=== PATIENT | male | born 1990 | race Caucasian/White ===

== ENCOUNTER 2018-04-08 10:57 | Emergency (ER) | payer OTHER ==
[2018-04-08] MEDS ORDERED: oxyCODONE 5 MG TABLET PO STA (12:00)
--- NOTE | 2018-04-08 12:06 | XRAY Report ---
Reason: wrist foriegn object Procedure Date: 04/08/2018 Accession Number: [id number] / [id number] Procedure: XR - Wrist 3 View LT CPT Code: FULL RESULT: EXAM: LEFT WRIST RADIOGRAPHY EXAM DATE: 04/08/2018 11:36 AM. CLINICAL HISTORY: Wrist foreign object, pain. COMPARISON: None. TECHNIQUE: 3 views. FINDINGS: Bones: Bony mineralization appears appropriate. No acute fracture or focal osseous destruction. Joints: Alignment and joint spaces appear maintained. Soft Tissues: Small radiopaque foreign body projecting within the soft tissues along the palmar side of the wrist at the level of the radiocarpal joint. This measures located approximately 1 mm and approximately 7 mm deep to the skin surface. IMPRESSION: No acute fracture or dislocation. Small radiopaque foreign body projecting within the soft tissues along the palmar side of the wrist at the level of the radiocarpal joint. This measures approximately 1 mm and located approximately 7 mm deep to the skin surface. RADIA
--- NOTE | 2018-04-08 12:47 | ED Physician Documentation ---
History of Present Illness - Stated complaint Stated Complaint: LEFT HAND LAC - Chief complaint Chief Complaint: Ext Problem - Additonal information Additional information: hx from pt [place] male immuniz UTD mettalic FB into ant l wrist at work seen by [facility] chaney and advised likely did not need removal, splinted and has fup Monday inc discomfort with ROM and numbness to palm proximal to thumb/index web space to ER to have it removed Review of Systems Skin: reports: Other (puncture) Musculoskeletal: reports: Other (wrist pain) Neurologic: reports: Numbness (L hand) PD PAST MEDICAL HISTORY - Past Medical History Past Medical History: No - Past Surgical History Past Surgical History: Yes - Present Medications Home Medications: Ambulatory Orders Medication Instructions Recorded Confirmed HYDROcod/ACETAM 5/325 [[place] 5/325] 1 ea PO Q6H PRN #4 tablet 04/08/18 Ibuprofen [Motrin] 400 mg PO Q6H PRN #20 tablet 04/08/18 - Allergies Allergies/Adverse Reactions: Allergies Allergy/AdvReac Type Severity Reaction Status Date / Time No Known Drug Allergies Allergy Verified 04/08/18 11:07 - Social History Does the pt smoke?: No Smoking Status: Never smoker Does the pt drink ETOH?: Yes Does the pt have substance abuse?: No - Immunizations Immunizations are current?: Yes PD ED PE NORMAL - Vitals Vital signs reviewed: Yes - Extremities Extremities: Other (L volar wrist small puncture s erythema swelling redness discharge, limited ROM 2/2 pain, motor intact except as limited by pain, dec sensation to palm just proximal to thumb index web space, + cap refill) Results - Vitals Vitals: Vital Signs - 24 hr 04/08/18 11:07 Temperature 36.4 C L Heart Rate 98 Respiratory 16 Rate Blood Pressure 132/82 H O2 Saturation 100 Oxygen O2 Source Room air - Rads (name of study) wrist Radiology: See rad report (small metallic FB volar wrist, < 1 cm) PD MEDICAL DECISION MAKING - ED course ED course: does not appear infected spoke to Chevy Islas who does not feel it needs emergent removal and defers to [facility] ch[facility] for further care spoke to [employer] chaney who states the exam as i describe is same as when he saw pt Monday and that he also does not think it needs emergent removal and that he will see pt in clinic tomorrow have oxy for pain and a dose of decadron for nerve inflammation - Sepsis Event Vital Signs: Vital Signs - 24 hr 04/08/18 11:07 Temperature 36.4 C L Heart Rate 98 Respiratory 16 Rate Blood Pressure 132/82 H O2 Saturation 100 Oxygen O2 Source Room air Departure - Departure Disposition: 01 Home, Self Care Clinical Impression: Paresthesia Metal foreign body in upper extremity Qualifiers: Encounter type: initial encounter Laterality: left Qualified Code(s): S40.852A - Superficial foreign body of left upper arm, initial encounter Condition: Good Follow-Up: [facility] [Provider Group] Prescriptions: HYDROcod/ACETAM 5/325 [[place] 5/325] 1 ea PO Q6H PRN #4 tablet PRN Reason: Severe Pain Ibuprofen [Motrin] 400 mg PO Q6H PRN #20 tablet PRN Reason: Pain Comments: I spoke to orthopedics at [facility] and at [place] - the surgeons do not feel this needs to be removed emergently The [place] orthopedic surgeon would like to see you in clinic tomorrow We gave you a dose of steroids to decrease the nerve inflammation and hopefully ease the numbness and pain And I have prescribed enough pain medication to last you until you are seen in clinic tomorrow Wear your splint Ice and elevation will help to Forms: Activity restrictions
[2018-04-08 13:10] VITALS: BP 135/90
== END 2018-04-08 13:09 | disposition home or self-care (01) ==
LOC: ED 10:57
DX: S61.542A Puncture wound with foreign body of left wrist, initial encounter (principal); R20.2 Paresthesia of skin; X58.XXXA Exposure to other specified factors, initial encounter; Y93.89 Activity, other specified; Y92.89 Other specified places as the place of occurrence of the external cause; Y99.1 Military activity
CPT/HCPCS: 73110; 99283; A9270

== ENCOUNTER 2018-10-09 12:57 | Emergency (ER) | payer OTHER ==
--- NOTE | 2018-10-09 14:31 | ED Physician Documentation ---
PD HPI HEENT - Stated complaint Stated Complaint: EYE INJURY - Chief complaint Chief Complaint: Trauma Hd/Nk - History obtained from History obtained from: Patient - History of Present Illness Timing - onset: Today Timing - details: Abrupt onset (He was working with a tool that came loose from what he was working on and it came back and struck him in the right lower eyelid. He denies any injury or feeling of injury to the eyeball itself. He has a laceration on the lower eyelid just at the margin of the lid. He is having some bruising of the lower eyelid as well. He came here from work for evaluation. 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 No: Congestion, Headache Recently seen: Not recently seen Review of Systems Eyes: denies: Loss of vision, Decreased vision, Photophobia, Irritation Neurologic: denies: Altered mental status, Headache PD PAST MEDICAL HISTORY - Past Medical History Past Medical History: No Cardiovascular: None Respiratory: None Neuro: None Endocrine/Autoimmune: None GI: None : None HEENT: None Psych: None Musculoskeletal: None Derm: None - Past Surgical History Past Surgical History: Yes - Present Medications Home Medications: Ambulatory Orders Medication Instructions Recorded Confirmed Naproxen 500 mg PO BID #20 tablet 10/09/18 Tramadol HCl 50 mg PO Q6H PRN #12 tablet 10/09/18 - Allergies Allergies/Adverse Reactions: Allergies Allergy/AdvReac Type Severity Reaction Status Date / Time No Known Drug Allergies Allergy Verified 10/09/18 13:07 - Social History Does the pt smoke?: No Smoking Status: Never smoker Does the pt drink ETOH?: Yes ETOH Use: Beer Does the pt have substance abuse?: No - Immunizations Immunizations are current?: Yes - POLST Patient has POLST: No PD ED PE NORMAL - Vitals Vital signs reviewed: Yes - General General: Alert and oriented X 3, No acute distress, Well developed/nourished - HEENT HEENT: PERRL, EOMI, Other (There is some bruising and early ecchymosis of the lower eyelid. There is some mild subconjunctival hemorrhage just on the 4 o'clock position on the right eye. There is a laceration in the lower lid towards the medial aspect but not at the medial canthus. He goes just to the edge of the lid margin and there is some gapping of the wound. There is slight oozing bleeding at this time. Is no foreign body seen. The rest of the face is nontender. He has good extraocular motions without any posterior eye pain.) - Neck Neck: Supple, no meningeal sign, No adenopathy - Derm Derm: Normal color, Warm and dry - Neuro Neuro: Alert and oriented X 3, No motor deficit, Normal speech Results - Vitals Vitals: Vital Signs - 24 hr 10/09/18 10/09/18 13:02 15:11 Temperature 36.7 C 36.4 C L Heart Rate 72 74 Respiratory 16 16 Rate Blood Pressure 138/79 H 139/84 H O2 Saturation 100 100 Oxygen O2 Source Room air PD MEDICAL DECISION MAKING - ED course Complexity details: considered differential (The laceration is at the medial corner of the right lower lid. It does not appear to involve the medial canthus. However it does disrupt the lid margin just slightly. There is gapping of the wound and edge. I told the patient a feel he really needs sutures to have this better approximated. He is uncomfortable at the thought of a needle close to his eye. I discussed with him that the approach with the topical anesthetic and any potential numbing local injection would have the needle directed along the line of the lid and not pointed at all towards his eyeball directly. He was still too uncomfortable with the thought of suturing or not close to his eye and declined wound repair.), d/w patient Departure - Departure Disposition: 01 Home, Self Care Clinical Impression: Eyelid laceration, right Qualifiers: Encounter type: initial encounter Qualified Code(s): S01.111A - Laceration without foreign body of right eyelid and periocular area, initial encounter Condition: Stable Record reviewed to determine appropriate education?: Yes Instructions: ED Laceration All Follow-Up: [facility] [Provider Group] Nuno Addison MD [Provider Admit Priv/Credential] - Prescriptions: Naproxen 500 mg PO BID #20 tablet Tramadol HCl 50 mg PO Q6H PRN #12 tablet PRN Reason: Pain Comments: cleanse with soap and water 2-3 times daily and apply topical ointment. This will heal better with sutures. You can return for sutures if you change your mind up to about 24 hours after the injury and is still suturable on the face. You could see an event specialist instead if that is more reassuring, and can call his office and see if has opening for tomorrow. Can also follow up with event specialist or your primary care if it is not healing well and see what options are. Return if signs of infection. Naproxen twice daily for inflammation and pain. Add Tylenol or tramadol if needed for pain. Discharge Date/Time: 10/09/18 15:21
[2018-10-09] MEDS ORDERED: LIDOCAINE-EPINEPH-TETRACAINE 3 ML SYRINGE TOP STA (14:40)
[2018-10-09] MEDS ORDERED: NAPROXEN 250 MG TABLET PO STA (15:00)
[2018-10-09] MEDS ORDERED: ACETAMINOPHEN 325 MG TABLET PO STA (15:00)
[2018-10-09 15:12] VITALS: BP 139/84
== END 2018-10-09 15:21 | disposition home or self-care (01) ==
LOC: EDUNIT# → ED 12:57
DX: S01.111A Laceration without foreign body of right eyelid and periocular area, initial encounter (principal); H11.31 Conjunctival hemorrhage, right eye; W22.8XXA Striking against or struck by other objects, initial encounter; Y99.0 Civilian activity done for income or pay
CPT/HCPCS: 99283; A9270

== ENCOUNTER 2019-07-03 09:06 | Outpatient (CLI) | payer OTHER ==
--- NOTE | 2019-07-03 16:19 | MRI Report ---
Reason: RT KNEE PAIN Procedure Date: 07/03/2019 Accession Number: [id number] / [id number] Procedure: MRI - Knee RT W/O CPT Code: Final Report FULL RESULT: EXAM: RIGHT KNEE MRI WITHOUT CONTRAST EXAM DATE: 07/03/2019 09:50 AM. CLINICAL HISTORY: Chronic right knee pain. No known injury. COMPARISON: None. TECHNIQUE: Multiplanar, multisequence T1-weighted and fluid-sensitive sequences of the knee without contrast. Other: None. FINDINGS: Bones: No fractures or subluxations. No marrow edema. No bone lesions. Articular Cartilage: Unremarkable. Medial Meniscus: The medial meniscus is intact. Lateral Meniscus: The lateral meniscus is intact. Cruciate Ligaments: The anterior and posterior cruciate ligaments are intact. Collateral Ligaments: The medial collateral and lateral collateral ligamentous structures are intact. Tendons: The quadriceps, patellar, semimembranosus, and popliteus tendons are unremarkable. Musculature: No edema or fatty atrophy. Other: No effusion. No popliteal cyst. No loose bodies. The medial and lateral retinacula are intact. The subcutaneous tissues and fat pads are unremarkable. IMPRESSION: No MRI abnormalities in the knee. RADIA
== END 2019-07-03 09:07 | disposition home or self-care (01) ==
LOC: DI 09:06
DX: M25.561 Pain in right knee (principal)

== ENCOUNTER 2021-05-19 18:56 | Emergency (ER) | payer OTHER ==
[2021-05-19 19:10] VITALS: BP 160/83
--- NOTE | 2021-05-19 20:32 | ED Physician Documentation ---
PD HPI UPPER EXT INJURY - Stated complaint Stated Complaint: CUT LT FINGER TIP - Chief complaint Chief Complaint: Laceration - History obtained from History obtained from: Patient PD PAST MEDICAL HISTORY - Past Medical History Cardiovascular: None Respiratory: None Neuro: None Endocrine/Autoimmune: None GI: None : None HEENT: None Psych: None Musculoskeletal: None Derm: None - Past Surgical History Past Surgical History: Yes - Present Medications Home Medications: Ambulatory Orders Medication Instructions Recorded Confirmed Naproxen 500 mg PO BID #20 tablet 10/09/18 Tramadol HCl 50 mg PO Q6H PRN #12 tablet 10/09/18 - Allergies Allergies/Adverse Reactions: Allergies Allergy/AdvReac Type Severity Reaction Status Date / Time No Known Drug Allergies Allergy Verified 05/19/21 19:10 - Social History Does the pt smoke?: No Smoking Status: Never smoker Does the pt drink ETOH?: Yes Does the pt have substance abuse?: No - Immunizations Immunizations are current?: Yes - POLST Patient has POLST: No Results - Vitals Vitals: Vital Signs - 24 hr 05/19/21 19:07 Temperature 37.1 C Heart Rate 86 Respiratory 16 Rate Blood Pressure 160/83 H O2 Saturation 100 Oxygen O2 Source Room air
== END 2021-05-19 20:34 | disposition left against medical advice (07) ==
LOC: ED 18:56
DX: Z53.21 Procedure and treatment not carried out due to patient leaving prior to being seen by health care provider (principal)

== ENCOUNTER 2024-04-09 12:28 | Outpatient (CLI) | payer OTHER ==
--- NOTE | 2024-04-09 14:49 | MRI Report ---
Knee LT WO CLINICAL INFORMATION: 34 years of age, Male, KNEE PAIN. COMPARISON: None Technique: Multisequence, multiplanar MRI of the left knee was performed without intravenous contrast . FINDINGS: Menisci: The medial and lateral menisci, including the roots, are intact. Cruciate ligaments: The anterior and posterior cruciate ligaments are intact. MCL/LCL: The MCL is unremarkable. The biceps femoris tendon is unremarkable. The fibular collateral ligament is unremarkable. The iliotibial band is intact. The popliteus muscle and tendon also appear intact. Extensor mechanism: The quadricep tendon is unremarkable. Mild tendinosis of the proximal patella ten don with mild subjacent Hoffa's fat pad edema. Mild suprapatellar fat pad edema. Patellofemoral joint: Alignment within the patellofemoral joint is normal. The patellofemoral ligame nts are intact. Mild chondral irregularity of the lateral patellar facet. Cartilage of the trochlea i s unremarkable. Cartilage and bone: Cartilage of the medial and lateral compartments are well maintained. No acute fr acture. Small T2 hyperintense lesion in the proximal tibial metaphysis, nonspecific and may represent a small low-grade chondral lesion. Miscellaneous: No significant joint effusion. No popliteal cyst. No intra-articular bodies are ident ified. Mild muscle edema of the medial and lateral head of the gastrocnemius, nonspecific and may re present mild muscle strain. IMPRESSION: 1.Findings suggestive of patellar maltracking with mild tendinosis of the proximal patellar tendon, H offa's fat pad edema and suprapatellar fat pad edema. 2.Mild chondrosis of the patellofemoral compartment. 3.Mild muscle edema of the medial and lateral head of the gastrocnemius, nonspecific and may represen t mild muscle strain. Reviewed by: Aura George MD on 04/09/2024 2:48 PM PDT Approved by: Aura George MD on 04/09/2024 2:48 PM PDT Station ID: [id number]
--- NOTE | 2024-04-09 14:59 | MRI Report ---
Knee RT WO CLINICAL INFORMATION: 34 years of age, Male, KNEE PAIN. COMPARISON: 07/03/2019 Technique: Multisequence, multiplanar MRI of the right knee was performed without intravenous contras t. FINDINGS: Menisci: The medial and lateral menisci, including the roots, are intact. Cruciate ligaments: The anterior and posterior cruciate ligaments are intact. MCL/LCL: The MCL is unremarkable. The biceps femoris tendon is unremarkable. The fibular collateral ligament is unremarkable. The iliotibial band is intact. The popliteus muscle and tendon also appear intact. Extensor mechanism: The quadricep tendon is unremarkable. Mild tendinosis of the patella tendon with subjacent mild Hoffa's fat pad edema. Mild suprapatellar fat pad edema. Patellofemoral joint: Alignment within the patellofemoral joint is normal. The patellofemoral ligame nts are intact. Mild chondral irregularity of the median ridge of the patella. Cartilage of the troch mady is unremarkable. Cartilage and bone: Cartilage of the medial and the lateral compartments are well maintained. No acut e fracture. Miscellaneous: No significant joint effusion. No popliteal cyst. No intra-articular bodies are ident ified. Normal muscle signal intensity and morphology. No vascular anomaly. IMPRESSION: 1.Findings suggestive of jumper's knee with mild tendinosis of the patella tendon, mild Hoffa's fat p ad edema, and mild suprapatellar fat pad edema. 2.Mild chondrosis of the patellofemoral compartment. Reviewed by: Aura George MD on 04/09/2024 2:58 PM PDT Approved by: Aura George MD on 04/09/2024 2:58 PM PDT Station ID: [id number]
== END 2024-04-09 12:29 | disposition home or self-care (01) ==
LOC: DI 12:28
PROVIDERS: ATTEND Nurse Practitioner Family
DX: M67.961 Unspecified disorder of synovium and tendon, right lower leg (principal); R60.0 Localized edema; M94.261 Chondromalacia, right knee; M67.962 Unspecified disorder of synovium and tendon, left lower leg; M94.262 Chondromalacia, left knee